=== PATIENT | male | born 1970 | race Caucasian/White ===

== ENCOUNTER 2018-05-21 00:36 | Emergency (ER) | payer OTHER ==
[~2018-05-21] VITALS: Ht 182.9 cm; Wt 122.5 kg
[~2018-05-21 00:36] MED LIST: ADVIL200 M1 PO; AUGMENTIN 875-1 EACH PO; CRESTOR20 M2 PO; DILTIAZEM 24HR240 MG PO; ZITHROMAX TRI-500 M1 PO
[2018-05-21 01:13] LABS: ABSOLUTE BASOPHIL COUNT 0.1 /CUMM (0.0-0.2); ABSOLUTE EOSINOPHIL COUNT 0.1 /CUMM (0.0-0.7); ABSOLUTE GRANULOCYTE CT 6.8 /CUMM (1.4-6.5); ABSOLUTE LYMPH COUNT 2.5 /CUMM (1.2-3.4); BASOPHIL % 1.1 % (0.0-2.0); EOSINOPHIL % 1.3 % (0-5); GRANULOCYTE % 64.8 % (42.2-75.2); HEMATOCRIT 45.1 % (42-52); MEAN CORPUSCULAR HGB 28.1 PG (27.0-31.0); MEAN CORPUSCULAR VOLUME 85.2 FL (80.0-94.0); MEAN PLATELET VOLUME 7.5 FL (7.4-10.4); RBC DISTRIBUTION WIDTH 15.9 % (11.5-14.5); RED BLOOD CELL CT 5.29 /CUMM (4.70-6.10); WHITE BLOOD CELL COUNT 10.5 /CUMM (4.8-10.8)
[2018-05-21 01:26] LABS: PLATELET COUNT 282 /CUMM (130-400)
--- NOTE | 2018-05-21 02:25 | ED GI/GU/ABDOMINAL COMPLAINT ---
History of Present Illness General Chief Complaint: Abdominal Pain/Flank Pain Stated Complaint: "MY KIDNEY STONES ARE BACK" Source: patient, family, old records Exam Limitations: no limitations Vital Signs & Intake/Output Vital Signs & Intake/Output Vital Signs Date Time Temp Pulse Resp B/P B/P Pulse O2 O2 Flow FiO2 Mean Ox Delivery Rate 05/21 0314 60 20 100/62 98 Room Air 05/21 0055 99.0 66 20 118/66 98 Room Air Allergies Coded Allergies: NO KNOWN ALLERGIES (04/29/13) Reconcile Medications Azithromycin (Zithromax Tri-Moris) 500 MG TABLET 1 TAB PO DAILY infection Diltiazem HCl (Diltiazem 24HR ER) 240 MG CAP.ER.24H 1 CAP PO QPM HEART ( Reported) Ibuprofen (Advil) 200 MG CAPSULE 1 TAB PO Q4-6 PRN PRN PAIN (Reported) Rosuvastatin Calcium (Crestor) 20 MG TABLET 1 TAB PO QPM CHOLESTEROL ( Reported) Triage Note: PT COMING IN FROM HOME C/O BILAT FLANK PAIN THAT STARTED AN HOUR AGO. PT STATES THAT HE HAD CONFIRMED KIDNEY STONES ON BOTH SIDES ON 05/13/18 AND HE ALSO HAD A STENT PLACED ON THE LEFT ON 05/13/18. PT C/O NAUSEA AND VOMITING. PT STATES HE TOOK A PERCOCET AT 9PM. PAIN 10/10. PT DENIES ANY OTHER COMPLAINTS AT THIS TIME. Triage Nurses Notes Reviewed? yes HPI: Patient presents for evaluation of sudden onset of right flank pain that began about 2 hours ago. The pain is sharp and severe and intermittent. He denies any associated hematuria or dysuria. He didn't have any medications to try for pain. He has a known history of multiple kidney stones and has had prior ureteral stents placed. Past History Travel History Traveled to [place] past 21 day No Medical History Any Pertinent Medical History? see below for history Neurological: LEFT-SIDED HERPES ZOSTER OPHTHALMICUS EENT: NONE Cardiovascular: hypertension, HYPERLIP,DVT NECK Respiratory: asthma Gastrointestinal: NONE Hepatic: NONE Renal: nephrolithiasis Musculoskeletal: DAMAGED DISK TO LOWER DIANA Psychiatric: NONE Endocrine: NONE Blood Disorders: DVT (RIGHT IJ) Cancer(s): METASTATIC TESTICULAR CANCER REHAB TECHNICIAN/Reproductive: NONE History of MRSA: No History of VRE: No History of CDIFF: No Surgical History Surgical History: STATUS POST RIGHT RADICAL ORCHIECTOMY Psychosocial History Who do you live with Family Services at Home None What is your primary language Algerian Tobacco Use: Never used Family History Family History, If Any: FATHER FH: prostate cancer Hx Contributory? No Review of Systems Review of Systems Constitutional: Reports: no symptoms. EENTM: Reports: no symptoms. Respiratory: Reports: no symptoms. Cardiovascular: Reports: no symptoms. GI: Reports: no symptoms. Genitourinary: Reports: see HPI. Musculoskeletal: Reports: no symptoms. Skin: Reports: no symptoms. Neurological/Psychological: Reports: no symptoms. Hematologic/Endocrine: Reports: no symptoms. Immunologic/Allergic: Reports: no symptoms. All Other Systems: Reviewed and Negative Physical Exam Physical Exam Gastrointestinal: See below Comments: Gen.: Well-nourished, well-developed, no acute respiratory distress. Moderately uncomfortable appearing. Head: Normocephalic, atraumatic. Eyes: Normal inspection bilaterally Ears: Normal inspection bilaterally Nose: Normal inspection Throat/mouth : Moist mucosa Neck: Supple, full range of motion, no goiter Heart: Regular rate and rhythm, no murmurs rubs or gallops Lungs: Clear to auscultation bilaterally with normal air entry Chest: Nontender Back: Normal range of motion, right CVAT Abdomen: Soft, right sided tenderness with brief voluntary guarding but no rebound, nondistended, normal bowel sounds Extremities: Normal range of motion grossly, equal radial pulses, no cyanosis clubbing or edema Neurologic: Cranial nerves grossly intact, speech is clear Skin: warm and dry Psychiatric: Calm, cooperative, no apparent delusions or hallucinations Core Measures ACS in differential dx? No Sepsis Present: No Sepsis Focused Exam Completed? No Progress Differential Diagnosis: hydronephrosis, ureterolithiasis, pyelonephritis Plan of Care: Orders Procedure Date/time Status URINALYSIS 05/21 54 Active COMPREHENSIVE METABOLIC PANEL 05/21 54 Complete CBC WITHOUT DIFFERENTIAL 05/21 54 Complete Laboratory Tests 05/21/18 0100: Anion Gap 15, Estimated GFR > 60, BUN/Creatinine Ratio 16.3, Glucose 147 H, Calcium 8.7, Total Bilirubin 0.3, AST 21, ALT 47, Alkaline Phosphatase 114, Total Protein 6.4, Albumin 3.7, Globulin 2.7, Albumin/Globulin Ratio 1.4, CBC w Diff NO MAN DIFF REQ, RBC 5.29, MCV 85.2, MCH 28.1, MCHC 33.0, RDW 15.9 H, MPV 7.5, Gran % 64.8, Lymphocytes % 23.6, Monocytes % 9.2, Eosinophils % 1.3, Basophils % 1.1, Absolute Granulocytes 6.8 H, Absolute Lymphocytes 2.5, Absolute Monocytes 1.0 H, Absolute Eosinophils 0.1, Absolute Basophils 0.1 Diagnostic Imaging: Discussed w/RAD: CT Scan. Radiology Impression: PATIENT: MARGARET RODRIGUEZ JR PRESENT AGE: 47 PATIENT ACCOUNT NO: [id number] : 70 LOCATION: [facility] ORDERING PHYSICIAN: Neri Tuttle MD SERVICE DATE: 05/21/18 EXAM TYPE : CAT - CT ABD & PELVIS W/O IV CONTRAS EXAMINATION: CT ABDOMEN AND PELVIS WITHOUT CONTRAST CLINICAL INFORMATION: Right-sided renal flank pain. COMPARISON: CT abdomen pelvis May 14, 2018 TECHNIQUE: Multidetector volumetric imaging was performed from the superior aspect of the liver through the pubic symphysis. Sagittal and coronal reformatted images were obtained on the technologist's workstation. DLP: 1511.73 mGy-cm FINDINGS: LUNG BASES: The visualized lung bases are unremarkable. LIVER, GALLBLADDER, AND BILIARY TREE: The liver is normal in size, shape, and attenuation. No focal hepatic lesion or biliary ductal dilatation is present. The gallbladder is unremarkable with no evidence of radiopaque gallstones, gallbladder wall thickening, or obvious pericholecystic inflammatory changes. PANCREAS: Unremarkable. SPLEEN: Unremarkable. ADRENAL GLANDS: Unremarkable. KIDNEYS AND URETERS: Moderate hydronephrosis of right kidney due to an obstructing 3 mm stone in the proximal right ureter, axial image 414 (3). No additional stone in the right collecting system. There is a double-J stent in the left collecting system. The stent is in good position. At the left ureteropelvic junction there is a 5 mm stone lying adjacent to the stent. There is also a punctate stone in the lower pole the left kidney which is nonobstructive. BLADDER: Unremarkable. GASTROINTESTINAL TRACT: The small and large bowel are unremarkable. The appendix is unremarkable. ABDOMINAL WALL: Large complex ventral wall hernia containing fat which is similar to prior CAT scan. No herniation of the bowel. LYMPH NODES: Normal. VASCULAR: Unremarkable. PELVIC VISCERA: Unremarkable. OSSEOUS STRUCTURES: Unremarkable. IMPRESSION: 1. Moderate hydronephrosis of the right kidney due to an obstructing 3 mm stone in the proximal right ureter, axial image 414 (3). 2. Double-J stent in left collecting system. Punctate stone lower pole left kidney. There is a 5 mm stone at the ureteropelvic junction. DICTATED BY: Mukund Hatfield MD DATE/TIME DICTATED: 05/21/18329 CERTIFIED OPHTHALMIC ASSISTANT:RADU DATE/TIME TRANSCRIBED:05/21/18329 CONFIDENTIAL, DO NOT COPY WITHOUT APPROPRIATE AUTHORIZATION. <Electronically signed in Other Vendor System> SIGNED BY: Mukund Hatfield MD 05/21/18340 Initial ED EKG: none Comments: 05/21/2018 3:51:40 AM I have updated Margaret on test results. His pain is down to a 3 out of 10. He feels comfortable enough to return home. Departure Departure Disposition: HOME OR SELF CARE Condition: Stable Clinical Impression Primary Impression: Renal colic on right side Secondary Impressions: Ureterolithiasis Referrals: Bigg Xavier MD (PCP/Family) Additional Instructions: Cipro as prescribed. ketorolac as prescribed for pain. Add Percocet if necessary. Contact Dr. Leiva on . Return if any concerns or sudden worsening. Please note that there might be incidental findings in your evaluation that are unrelated to the current emergency department visit. Please notify your primary care doctor about this emergency department visit in order to obtain and review all of the testing performed so that these incidental findings can be monitored as needed. If you had an x-ray performed, please understand that some fractures or other findings may not be seen on the initial set of x-rays. If your symptoms persist you might need a repeat set of x-rays to check for such a fracture. If you had a laceration evaluated, please understand that foreign bodies such as glass or wood may not be visible to the naked eye or on plain x-rays. If the wound becomes red, swollen, increasingly more painful or if there is any drainage from the wound, please have it reevaluated by a physician for the possibility of a retained foreign body. If you're unable to follow up as outlined in the discharge instructions please return to the emergency department. Thank you for choosing the [facility] Emergency Department for your care. It was a pleasure to serve you today. Neri Tuttle M.D. [facility] Departure Forms: Customer Survey General Discharge Information Prescriptions: Current Visit Scripts Ciprofloxacin HCl (Cipro) 1 TAB PO BID #14 TAB Ketorolac Tromethamine 1 TAB PO Q6P PRN pain #16 TAB pt received IV ketorolac in the emergency department Oxycodone HCl/Acetaminophen (Percocet 5-325 MG Tablet) 1-2 TAB PO Q6P PRN pain #16 TAB Critical Care Note Critical Care Note Critical Care Time: 30-74 min
[2018-05-21 03:14] VITALS: BP 100/62
--- NOTE | 2018-05-21 03:41 | CT SCAN REPORT ---
EXAMINATION: CT ABDOMEN AND PELVIS WITHOUT CONTRAST CLINICAL INFORMATION: Right-sided renal flank pain. COMPARISON: CT abdomen pelvis May 14, 2018 TECHNIQUE: Multidetector volumetric imaging was performed from the superior aspect of the liver through the pubic symphysis. Sagittal and coronal reformatted images were obtained on the technologist's workstation. DLP: 1511.73 mGy-cm FINDINGS: LUNG BASES: The visualized lung bases are unremarkable. LIVER, GALLBLADDER, AND BILIARY TREE: The liver is normal in size, shape, and attenuation. No focal hepatic lesion or biliary ductal dilatation is present. The gallbladder is unremarkable with no evidence of radiopaque gallstones, gallbladder wall thickening, or obvious pericholecystic inflammatory changes. PANCREAS: Unremarkable. SPLEEN: Unremarkable. ADRENAL GLANDS: Unremarkable. KIDNEYS AND URETERS: Moderate hydronephrosis of right kidney due to an obstructing 3 mm stone in the proximal right ureter, axial image 414 (3). No additional stone in the right collecting system. There is a double-J stent in the left collecting system. The stent is in good position. At the left ureteropelvic junction there is a 5 mm stone lying adjacent to the stent. There is also a punctate stone in the lower pole the left kidney which is nonobstructive. BLADDER: Unremarkable. GASTROINTESTINAL TRACT: The small and large bowel are unremarkable. The appendix is unremarkable. ABDOMINAL WALL: Large complex ventral wall hernia containing fat which is similar to prior CAT scan. No herniation of the bowel. LYMPH NODES: Normal. VASCULAR: Unremarkable. PELVIC VISCERA: Unremarkable. OSSEOUS STRUCTURES: Unremarkable. IMPRESSION: 1. Moderate hydronephrosis of the right kidney due to an obstructing 3 mm stone in the proximal right ureter, axial image 414 (3). 2. Double-J stent in left collecting system. Punctate stone lower pole left kidney. There is a 5 mm stone at the ureteropelvic junction.
[2018-05-21] MEDS ORDERED: CIPRO500 M1 PO (03:54)
[2018-05-21] MEDS ORDERED: PERCOCET 5-3251 EACH PO (03:54)
[2018-05-21] MEDS ORDERED: KETOROLAC TROME10 M1 PO (03:54)
== END 2018-05-21 04:04 ==
LOC: ERH 00:36
PROVIDERS: Physician Assistant Medical
DX: N20.2 Calculus of kidney with calculus of ureter (principal)
CPT/HCPCS: 74176; 81001; 96361; 96374; 96375; 96376; J1885; J2405

== ENCOUNTER → 2018-05-27 | Day surgery (SDC) | payer OTHER ==
[~2018-05-27] VITALS: Ht 182.9 cm; Wt 122.5 kg
[~2018-05-27] MED LIST changes: +CIPRO500 M1 PO; +KETOROLAC TROME10 M1 PO; +PERCOCET 5-3251 EACH PO
--- NOTE | 2018-05-27 13:27 | Operative Report ---
Operative/Inv Procedure Report Surgery Date: 05/27/18 Name of Procedure: left renal ESWL, cysto. with left stent removal, right retrograde pyelogram: fluorosocopy Pre-Operative Diagnosis: right ureter stone: left renal stone and stent Post-Operative Diagnosis: same Estimated Blood Loss: scant Surgeon/Pit Clerk: Margarito Leiva MD Anesthesia: moderate sedation Specimens: left stent Complications: none Operative/Procedure Note Note: The patient was taken to the operating room placed on the OR table in supine position. Timeout was performed, with the patient awake, in order to confirm correct procedure, laterality, anesthesia, and other pertinent perioperative information. After adequate anesthesia and antibiotics, the patient was then positioned over the ESWL table cutout overlying the treatment dome. Fluoroscopy, using AP and oblique views, as well as renal ultrasound, or performed in order to locate theleft renal stone. The position of the left renal stone was optimized, and positioned in the middle of the ESWL crosshairs. The stone was measured to be approximately 9 mm in size. ESWL was initiated at low power, and after 200 shockwaves delivered, noting the patient's tolerance to the shockwaves, the power was increased to maximum. At the end of 2500 shockwaves, fluoroscopy confirms the change in consistency of the stone, indicating shattering of the stone. The patient was then frog legged, draped and prepped in the usual surgical fashion. 22 [place] cystoscope sheath with a 30 angle lens was inserted into the bladder without difficulty. The left stent was visualized, and grasped with alligator forceps. The cystoscope along with entire stent was removed without difficulty with fluoroscopic visualization. The 22 [place] cystoscope was then reinserted into the bladder once again. The right orifice was intubated with a tiger tail the right orifice was intubated with a tiger tail t open ended stent. Retrograde pyelogram was performed open- ended stent. Retrograde pyelogram was performed revealing a 4 mm filling defect 4 mm filling defect,, consistent with stone, in the mid ureter withwith brisk efflux of contrast material. The tiger tailThe tiger tail open-ended stent along with the cystoscope was then removed without difficulty. open-ended stent along with the cystoscope was then removed without difficulty. All sponge needle and instrument count were correct at the end of the case. The patient tolerated the procedures well, and was taken to the recovery room in satisfactory condition. The patient is discharged home with pain medication, and follow-up instructions with in 2-3 weeks' time. Discharge Disposition: Same Day Admissions CC: Cali UMSE,Margarito
== END ==
LOC: STS 01:03
DX: N20.1 Calculus of ureter (principal); I10 Essential (primary) hypertension; N13.39 Other hydronephrosis; E78.5 Hyperlipidemia, unspecified; Z85.47 Personal history of malignant neoplasm of testis; Z86.718 Personal history of other venous thrombosis and embolism
CPT/HCPCS: J2250